=== PATIENT | female | born 1960 | race Caucasian/White ===

== ENCOUNTER → 2016-09-23 | Day surgery (SDC) | payer OTHER ==
[~2016-09-23] MED LIST: CLEOCIN300 MG PO; ESTRACE1 MG PO; FLORASTOR250 MG PO; LEVAQUIN 500MG500 MG PO; NORCO 5-325 TA1 EACH PO; PRILOSEC40 MG PO
== END | disposition home or self-care (01) ==
LOC: FAS 10:59
DX: Z12.11 Encounter for screening for malignant neoplasm of colon (principal); K29.50 Unspecified chronic gastritis without bleeding; K21.9 Gastro-esophageal reflux disease without esophagitis; K44.9 Diaphragmatic hernia without obstruction or gangrene; K64.0 First degree hemorrhoids; I10 Essential (primary) hypertension; F41.9 Anxiety disorder, unspecified; F32.9 Major depressive disorder, single episode, unspecified; G47.33 Obstructive sleep apnea (adult) (pediatric); E66.01 Morbid (severe) obesity due to excess calories; Z68.38 Body mass index [BMI] 38.0-38.9, adult; Z88.8 Allergy status to other drugs, medicaments and biological substances; Z98.84 Bariatric surgery status; Z79.818 Long term (current) use of other agents affecting estrogen receptors and estrogen levels; Z79.899 Other long term (current) drug therapy
CPT/HCPCS: 88305; J1100; J2704

== ENCOUNTER 2016-10-15 15:41 | Emergency (ER) | payer OTHER ==
[2016-10-15 17:54] LABS: BASOPHIL 0.1 % (0-2); EOSINOPHIL 1.6 % (0-5); HCT 37.6 % (37.0-47.0); HGB 12.3 g/dl (12.5-16.0); LYMPHOCYTE 23.3 % (15-48); MCH 28.9 pg (25.0-31.0); MCHC 32.7 g/dL (32.0-36.0); MCV 88.3 fL (78.0-100.0); MONOCYTE 6.8 % (0-12); MPV 9.6 fL (6.0-9.5); NEUTROPHIL 68.2 % (41-80); PLT 315 K/uL (150-400); RBC 4.26 M/uL (4.20-5.40); RDW 13.6 % (11.5-14.0); WBC 7.4 K/uL (4.0-10.5)
[2016-10-15 18:11] LABS: CREATININE 0.6 mg/dL (0.5-1.0)
== END 2016-10-15 18:41 | disposition home or self-care (01) ==
LOC: FER 15:41
PROVIDERS: Emergency Medicine
DX: I10 Essential (primary) hypertension (principal); G43.909 Migraine, unspecified, not intractable, without status migrainosus; K21.9 Gastro-esophageal reflux disease without esophagitis; Z88.5 Allergy status to narcotic agent
CPT/HCPCS: 36415; 70450; 80048; 84484; 85025

== ENCOUNTER 2016-12-23 11:30 | Inpatient (IN) | payer OTHER ==
[2016-12-21 13:20] LABS: HCT 37.8 % (37.0-47.0); HGB 12.5 g/dl (12.5-16.0); MCH 28.6 pg (25.0-31.0); MCHC 33.1 g/dL (32.0-36.0); MCV 86.5 fL (78.0-100.0); MPV 9.6 fL (6.0-9.5); RBC 4.37 M/uL (4.20-5.40); RDW 13.6 % (11.5-14.0); WBC 9.2 K/uL (4.0-10.5)
[2016-12-21 13:35] LABS: CREATININE 0.6 mg/dL (0.5-1.0)
[2016-12-23 15:10] LABS: BILIRUBIN 1+ mg/dL (NEGATIVE); BLOOD TRACE-INTACT Ery/uL (NEGATIVE); CLARITY CLEAR (CLEAR); COLOR YELLOW (YELLOW); GLUCOSE (U) NORMAL (NORMAL); KETONE (U) 2+ (MODERATE) mg/dL (NEGATIVE); LEUKOCYTES NEGATIVE Leu/uL (NEGATIVE); NITRITE NEGATIVE (NEGATIVE); PROTEIN NEGATIVE (NEGATIVE); SPECIFIC GRAVITY 1.025 (1.001-1.030); UROBILINOGEN 0.2 mg/dL (0.2-1.0)
[2016-12-24 05:24] LABS: HCT 32.2 % (37.0-47.0); HGB 10.4 g/dl (12.5-16.0); MCH 28.4 pg (25.0-31.0); MCHC 32.3 g/dL (32.0-36.0); MPV 9.1 fL (6.0-9.5); RBC 3.66 M/uL (4.20-5.40); RDW 13.5 % (11.5-14.0); WBC 10.9 K/uL (4.0-10.5)
[2016-12-24 05:41] LABS: CREATININE 0.6 mg/dL (0.5-1.0); POTASSIUM 4.5 mmol/L (3.5-5.1)
--- NOTE | 2016-12-24 13:55 | NUR ---
PT REPORTED "ITCHING" TO BILATERAL FEET AND NOW TO BACK. BENADRYL, 25MG, IV GIVEN AT THIS TIME. KEO SCHROEDER CONTACTED AND NOTIFIED. ORDERS REC'D AND INITIATED.
== END 2016-12-26 13:30 | disposition home or self-care (01) | DRG 621 ==
LOC: FMS 11:30 → FTCU 17:06
PROVIDERS: ADMIT Surgery
PROC: 0DB64Z3 Excision of Stomach, Percutaneous Endoscopic Approach, Vertical (ICD-10-PCS; principal; 2016-12-23 11:30)
PROC: 0DJ08ZZ Inspection of Upper Intestinal Tract, Via Natural or Artificial Opening Endoscopic (ICD-10-PCS; 2016-12-23 11:30)
DX: E66.01 Morbid (severe) obesity due to excess calories (principal); I10 Essential (primary) hypertension; K44.9 Diaphragmatic hernia without obstruction or gangrene; E55.9 Vitamin D deficiency, unspecified; G47.33 Obstructive sleep apnea (adult) (pediatric); K21.9 Gastro-esophageal reflux disease without esophagitis; G89.29 Other chronic pain; M54.9 Dorsalgia, unspecified; Z98.84 Bariatric surgery status; Z88.8 Allergy status to other drugs, medicaments and biological substances; Z91.048 Other nonmedicinal substance allergy status; Z68.41 Body mass index [BMI] 40.0-44.9, adult
CPT/HCPCS: 36415; 74240; 80048; 81003; 82150; 86850; 86900; 86901; 88307; 94010; J0131; J0690; J1100; J1170; J1885; J1980; J2405; J2704; J2710; J3010; J3411; J3475

== ENCOUNTER 2021-09-16 18:18 | Emergency (ER) | payer OTHER ==
[~2021-09-16 18:18] MED LIST changes: +IMODIUM2 MG PO; +ZOFRAN8 MG PO
[2021-09-16 20:18] LABS: BASOPHIL 0.2 % (0-2); EOSINOPHIL 0.8 % (0-5); HCT 36.2 % (37.0-47.0); HGB 11.8 g/dl (12.5-16.0); LYMPHOCYTE 13.8 % (15-48); MCH 28.4 pg (25.0-31.0); MCHC 32.6 g/dL (32.0-36.0); MCV 87.2 fL (78.0-100.0); MPV 10.3 fL (6.0-9.5); NEUTROPHIL 78.8 % (41-80); NRBC 0; PLT 300 K/uL (150-400); RBC 4.15 M/uL (4.20-5.40); RDW 13.8 % (11.5-14.0); WBC 13.1 K/uL (4.0-10.5)
[2021-09-16 20:27] LABS: INR 1.16 (0.9-1.2); PROTHROMBIN TIME 14.2 SECONDS (11.8-13.4)
[2021-09-16 20:36] LABS: ALBUMIN 3.5 g/dL (3.4-5.0); BILIRUBIN - TOTAL 0.4 mg/dL (0.2-1.0); BUN/CREAT RATIO (CALC) 18.1 RATIO; C-REACTIVE PROTEIN 0.4 mg/dL (<=0.90); CREATININE 0.83 mg/dL (0.51-0.95); GLOBULIN (CALCULATION) 3.1 g/dL; MAGNESIUM 1.8 mg/dL (1.8-2.4); POTASSIUM 3.8 mmol/L (3.5-5.1); TOTAL PROTEIN 6.6 g/dL (6.4-8.2)
[2021-09-16 21:07] LABS: BILIRUBIN NEGATIVE (NEGATIVE); BLOOD TRACE-INTACT Ery/uL (NEGATIVE); CLARITY CLEAR (CLEAR); COLOR YELLOW (YELLOW); GLUCOSE (U) NORMAL (NORMAL); LEUKOCYTES NEGATIVE Leu/uL (NEGATIVE); NITRITE NEGATIVE (NEGATIVE); PROTEIN NEGATIVE (NEGATIVE); SPECIFIC GRAVITY >=1.030 (1.001-1.030); UROBILINOGEN 0.2 mg/dL (0.2-1.0)
[2021-09-16 21:16] LABS: BACTERIA 1+
[2021-09-16] MEDS ORDERED: PERCOCET 5-3251 EACH PO (21:48)
== END 2021-09-16 22:09 | disposition home or self-care (01) ==
LOC: FER 18:18
PROVIDERS: Emergency Medicine
DX: T88.59XA Other complications of anesthesia, initial encounter (principal); G44.40 Drug-induced headache, not elsewhere classified, not intractable; Z88.5 Allergy status to narcotic agent; Y83.8 Other surgical procedures as the cause of abnormal reaction of the patient, or of later complication, without mention of misadventure at the time of the procedure
CPT/HCPCS: 36415; 70450; 80053; 81001; 83735; 84145; 85025; 85610; 86140; J1170; J2405; J7030

== ENCOUNTER 2021-11-23 07:14 | Emergency (ER) | payer OTHER ==
[~2021-11-23 07:14] MED LIST changes: +PERCOCET 5-3251 EACH PO
== END 2021-11-23 12:09 | disposition home or self-care (01) ==
LOC: FER 07:14
DX: S00.83XA Contusion of other part of head, initial encounter (principal); I10 Essential (primary) hypertension; Z88.5 Allergy status to narcotic agent; W19.XXXA Unspecified fall, initial encounter; Y92.009 Unspecified place in unspecified non-institutional (private) residence as the place of occurrence of the external cause
CPT/HCPCS: 72050